=== PATIENT | female | born 2000 | race African-American/Black ===

== ENCOUNTER 2022-11-22 00:28 | Emergency (ER) | payer SELFPAY ==
[~2022-11-22] VITALS: Ht 162.6 cm; Wt 73.0 kg
[2022-11-22 01:30] VITALS: BP 112/64
== END 2022-11-22 01:30 | disposition home or self-care (01) ==
LOC: ER 00:28
DX: F10.129 Alcohol abuse with intoxication, unspecified (principal); Y90.9 Presence of alcohol in blood, level not specified
CPT/HCPCS: 99283